=== PATIENT | female | born 1940 ===

== ENCOUNTER → 2017-02-09 | Outpatient (CLI) | payer MEDICARE, OTHER ==
--- NOTE | 2017-02-09 15:29 | RADIOLOGY REPORT (SQ) ---
EXAM DESCRIPTION: VENOUS UNILATERAL LOWER COMPLETED DATE/TIME: 02/09/2017 3:14 pm REASON FOR STUDY: RLE PAIN M79.604 PAIN IN RIGHT LEG COMPARISON: None. TECHNIQUE: Dynamic and static rey scale and color images acquired of the right leg venous system. S elected spectral images acquired with additional compression and augmentation maneuvers. The contrala teral common femoral vein and saphenofemoral junction were also imaged. Images stored on PACS. LIMITATIONS: None. FINDINGS: COMMON FEMORAL: Normal phasicity, compression and augmentation. No visualized echogenic ma terial on rey scale. No defects on color images. FEMORAL: Normal compression and augmentation. No visualized echogenic material on rey scale. No defe cts on color images. POPLITEAL: Normal compression, augmentation. No visualized echogenic material on rey scale. No defec ts on color images. CALF VESSELS: Normal compression, augmentation. No visualized echogenic material on rey scale. No de fects on color images. GSV and SSV: Normal compression, augmentation. No visualized echogenic material on rey scale. No def ects on color images. ANY DEEP VENOUS INSUFFICIENCY: Not evaluated. ANY EVIDENCE OF POPLITEAL CYST: No. OTHER: No other significant finding. CONTRALATERAL COMMON FEMORAL VEIN AND SAPHENOFEMORAL JUNCTION: Normal phasicity, compression and augmentation. No visualized echogenic material on rey scale. No de fects on color images. IMPRESSION: NO EVIDENCE OF DVT OR SVT IN THE RIGHT LEG. TECHNICAL DOCUMENTATION: JOB ID: [id number] [employer]- All Rights Reserved
== END ==
LOC: SP 14:21
PROVIDERS: ATTEND Physician Assistant
DX: M79.604 Pain in right leg (principal); R60.9 Edema, unspecified
CPT/HCPCS: 93971

== ENCOUNTER 2017-08-16 08:32 | Day surgery (SDC) | payer MEDICARE, OTHER ==
[~2017-08-16 08:32] MED LIST: CHONDR SU A NA/HYALUR INTRAOC KIT (SURGICARE) ONE; EPINEPHRINE INJ/PF 1 MG/1 ML AMPULE ONE; KETOROLAC TROMETHAMINE 0.45% 4 DROP/0.4 ML DROPERETTE OD PRN; LIDOCAINE 1% INJ-PF (10 MG/ML) 30 ML SDV ONE
[2017-08-16] MEDS: TETRACAINE HCL 0.5% OPH SOLN 0.6 ML DROPERETTE OD PRN ×3 (09:20→10:02)
[2017-08-16] MEDS: CYCLOPENTOLATE 0.2%/PHENYLEPHRINE 1% OPH SOLN 2 ML OD PRN ×3 (09:20→09:40)
[2017-08-16] MEDS: BESIFLOXACIN HCL 0.6% OPH SUSP 5 ML BOTTLE OD PRN ×4 (09:20→10:11)
[2017-08-16] MEDS: TROPICAMIDE 1% OPH SOLN 3 ML OD PRN ×3 (09:20→09:40)
[2017-08-16] MEDS ORDERED: MIDAZOLAM 2 MG/2 ML INJ ONE (09:35)
[2017-08-16] MEDS: TOBRAMYCIN SULFATE/DEXAMETH OPH OINTMENT 3.5 GM ONE ×2 (10:11)
== END 2017-08-16 10:45 | disposition home or self-care (01) ==
LOC: SC 08:32
PROVIDERS: ATTEND Ophthalmology
DX: H25.11 Age-related nuclear cataract, right eye (principal); I10 Essential (primary) hypertension; M19.90 Unspecified osteoarthritis, unspecified site; E78.00 Pure hypercholesterolemia, unspecified; E03.9 Hypothyroidism, unspecified; M10.9 Gout, unspecified; Z79.899 Other long term (current) drug therapy; Z88.8 Allergy status to other drugs, medicaments and biological substances; Z79.1 Long term (current) use of non-steroidal anti-inflammatories (NSAID)
CPT/HCPCS: 66984; V2630; J2250; J3490 ×3; A9270; J0171; 142

== ENCOUNTER 2017-08-30 07:24 | Day surgery (SDC) | payer MEDICARE, OTHER ==
[~2017-08-30 07:24] MED LIST changes: +BUPIVACAINE HCL 0.75% INJ/PF (7.5 MG/1 ML) 10 ML SDV OS PRN; -KETOROLAC TROMETHAMINE 0.45% 4 DROP/0.4 ML DROPERETTE OD PRN; +KETOROLAC TROMETHAMINE 0.45% 4 DROP/0.4 ML DROPERETTE OS PRN; +LIDOCAINE 4% INJ/PF (40 MG/ML) 5 ML AMPUL OS PRN
[2017-08-30] MEDS: CYCLOPENTOLATE 0.2%/PHENYLEPHRINE 1% OPH SOLN 2 ML OS PRN ×3 (08:05→08:25)
[2017-08-30] MEDS: BESIFLOXACIN HCL 0.6% OPH SUSP 5 ML BOTTLE OS PRN ×4 (08:05→09:00)
[2017-08-30] MEDS: TROPICAMIDE 1% OPH SOLN 3 ML OS PRN ×3 (08:05→08:25)
[2017-08-30] MEDS: TETRACAINE HCL 0.5% OPH SOLN 0.6 ML DROPERETTE OS PRN ×3 (08:05→08:42)
[2017-08-30] MEDS ORDERED: MIDAZOLAM 2 MG/2 ML INJ ONE (08:19)
[2017-08-30] MEDS: TOBRAMYCIN SULFATE/DEXAMETH OPH OINTMENT 3.5 GM ONE ×2 (08:51→09:00)
== END 2017-08-30 09:32 | disposition home or self-care (01) ==
LOC: SC 07:24
PROVIDERS: ATTEND Ophthalmology
DX: H25.12 Age-related nuclear cataract, left eye (principal); Z98.41 Cataract extraction status, right eye; I10 Essential (primary) hypertension; E78.00 Pure hypercholesterolemia, unspecified; E03.9 Hypothyroidism, unspecified; M10.9 Gout, unspecified; Z79.899 Other long term (current) drug therapy; Z79.1 Long term (current) use of non-steroidal anti-inflammatories (NSAID); Z88.8 Allergy status to other drugs, medicaments and biological substances
CPT/HCPCS: 66984; V2630; J2250; J3490 ×3; A9270; J0171; 142

== ENCOUNTER 2019-11-25 20:47 | Inpatient (IN) | payer MEDICARE, OTHER ==
--- NOTE | 2019-11-25 20:52 | ER Document Report ---
ED Medical Screen (RME) - General Chief Complaint: S/S of Possible Stroke Stated Complaint: SLURRED SPEECH Time Seen by Provider: 11/25/19 20:50 Primary Care Provider: JULIET PARKER MD [Primary Care Provider] - Follow up as needed Notes: HPI; 79-year-old female presents emergency room via EMS with sudden onset of slurred speech that started at 6 PM this evening. Per EMS spouse states she was perfectly fine until 6 PM. No previous history of TIA or strokes in the past. PE: Alert and oriented x3. Right facial droop noted. Decreased strength to right arm. Right-sided tongue deviation. Patient was taken straight to CT per stroke protocol. I have greeted and performed a rapid initial assessment of this patient. A comprehensive ED assessment and evaluation of the patient, analysis of test results and completion of the medical decision making process will be conducted by additional ED providers. I have specifically instructed the patient or family members with the patient to immediately return to any nursing staff should anything change in the patient's condition or with their chief complaint. TRAVEL OUTSIDE OF THE [place] IN LAST 30 DAYS: No - Related Data Allergies/Adverse Reactions: allopurinol Allergy (Verified 08/30/17 08:32) RASH Past Medical History - Past Medical History Cardiac Medical History: Reports: Hx Hypertension Denies: Hx Heart Attack Pulmonary Medical History: Denies: Hx Asthma Neurological Medical History: Denies: Hx Cerebrovascular Accident, Hx Seizures GI Medical History: Denies: Hx Hepatitis, Hx Hiatal Hernia, Hx Ulcer Infectious Medical History: Denies: Hx Hepatitis Past Surgical History: Denies: Hx Mastectomy, Hx Open Heart Surgery, Hx Pacemaker Doctor's Discharge - Discharge Referrals: JULIET PARKER MD [Primary Care Provider] - Follow up as needed
[2019-11-25 21:22] LABS: ABSOLUTE BASOPHILS # (AUTO) 0.1 10^3/uL (0.0-0.2); ABSOLUTE EOSINOPHILS # (AUTO) 0.2 10^3/uL (0.0-0.6); ABSOLUTE LYMPHOCYTES (AUTO) 2.7 10^3/uL (0.5-4.7); ABSOLUTE NEUT (AUTO) 7.8 10^3/uL (1.7-8.2); BASOPHILS % (AUTO) 0.9 % (0-2); EOSINOPHILS % (AUTO) 1.7 % (0-6); HEMATOCRIT 48.6 % (36.0-47.0); HEMOGLOBIN 16.5 g/dL (12.0-15.5); LYMPHOCYTES % (AUTO) 22.7 % (13-45); MEAN CORPUSCULAR HEMOGLOBIN 31.6 pg (27.0-33.4); MEAN CORPUSCULAR HGB CONC 33.9 g/dL (32.0-36.0); MEAN CORPUSCULAR VOLUME 93 fl (80-97); MONOCYTES % (AUTO) 8.6 % (3-13); PLATELET COUNT 322 10^3/uL (150-450); RED BLOOD COUNT 5.22 10^6/uL (3.72-5.28); RED CELL DISTRIBUTION WIDTH 12.9 % (11.5-14.0); SEGMENTED NEUTROPHILS % (AUTO) 66.1 % (42-78); TOTAL CELLS COUNTED % (AUTO) 100 %; WHITE BLOOD COUNT 11.8 10^3/uL (4.0-10.5)
[2019-11-25 21:34] LABS: INTERNATIONAL RATION (INR) 0.98; PARTIAL THROMBOPLASTIN TIME 35.1 SEC (23.5-35.8); PROTHROMBIN TIME 13.2 SEC (11.4-15.4)
[2019-11-25 21:39] LABS: APPEARANCE,URINE SLIGHTLY-CLOUDY; BILIRUBIN,URINE NEGATIVE (NEGATIVE); COLOR,URINE YELLOW; GLUCOSE, URINE NEGATIVE (NEGATIVE); KETONES,URINE NEGATIVE (NEGATIVE); LEUKOCYTE ESTERASE,URINE SMALL (NEGATIVE); NITRITE,URINE NEGATIVE (NEGATIVE); PROTEIN,URINE 30 mg/dL (NEGATIVE); URINE SPECIFIC GRAVITY 1.017
[2019-11-25 21:42] LABS: ALBUMIN 4.6 g/dL (3.5-5.0); ALKALINE PHOSPHATASE 120 U/L (38-126); ANION GAP 8 (5-19); ASPARTATE AMINO TRANSFERASE 22 U/L (14-36); BILIRUBIN,DIRECT 0.4 mg/dL (0.0-0.4); BILIRUBIN,TOTAL 1.2 mg/dL (0.2-1.3); BLOOD UREA NITROGEN 20 mg/dL (7-20); CALCIUM 9.8 mg/dL (8.4-10.2); CARBON DIOXIDE 28 mmol/L (22-30); CHLORIDE 103 mmol/L (98-107); CREATINE KINASE 81 U/L (30-135); GLUCOSE 113 mg/dL (75-110); POTASSIUM 3.9 mmol/L (3.6-5.0); TOTAL PROTEIN 7.6 g/dL (6.3-8.2)
--- NOTE | 2019-11-25 21:45 | EKG REPORT ---
SEVERITY:- ABNORMAL ECG - SINUS RHYTHM LEFT AXIS DEVIATION LEFT VENTRICULAR HYPERTROPHY CONSIDER ANTERIOR INFARCT : Confirmed by: Librado Mckoy 25-Nov-2019 21:44:34
[2019-11-25 21:54] LABS: CREATINE KINASE MB 0.77 ng/mL (<4.55)
[2019-11-25 21:56] LABS: TROPONIN I < 0.012 ng/mL
--- NOTE | 2019-11-25 22:17 | RADIOLOGY REPORT (SQ) ---
EXAM DESCRIPTION: CT HEAD WITHOUT IV CONTRAST COMPLETED DATE/TME: 11/25/2019 00:00 CLINICAL HISTORY: 79 years, Female, stroke like symptoms COMPARISON: None. TECHNIQUE: Noncontrast images of the brain were obtained. Images stored on PACS. All CT scanners at this facility use dose modulation, iterative reconstruction, and/or weight based dosing when appropriate to reduce radiation dose to as low as reasonably achievable (ALARA). [facility]: Dose Right [facility]: CareDose [facility]: Dose Right [facility]: Teradose 4D [facility]: [employer] LIMITATIONS: None. FINDINGS: There is no acute intracranial hemorrhage, abnormal mass effect, or major vascular territorial infarction. There is mild, age-appropriate atrophy. There is low-attenuation within the deep white matter, likely on the basis of chronic small vessel ischemic disease. There is no hydrocephalus. The calvarium is intact. The visualized portions of the paranasal sinuses and mastoid air cells are clear. IMPRESSION: Age-appropriate atrophy and presumed chronic small vessel ischemic changes as above. There is no evidence of acute intracranial hemorrhage or major vascular territorial infarct. If clinical concern exists regarding an acute ischemic/vascular etiology being responsible for patient's symptomatology, an MRI of the brain is more sensitive than the current study, in ruling out such a possibility. TECHNICAL DOCUMENTATION: Quality ID # 436: Final reports with documentation of one or more dose reduction techniques (e.g., Automated exposure control, adjustment of the mA and/or kV according to patient size, use of iterative reconstruction technique) copyright 2011 [employer]- All Rights Reserved
--- NOTE | 2019-11-25 22:19 | RADIOLOGY REPORT (SQ) ---
EXAM DESCRIPTION: XR CHEST 1 VIEW COMPLETED DATE/TME: 11/25/2019 20:50 CLINICAL HISTORY: 79 years, Female, weakness COMPARISON: None. NUMBER OF VIEWS: 1 TECHNIQUE: Portable AP upright view the chest was obtained at 9:09 PM LIMITATIONS: Low lung volumes and body habitus FINDINGS: Heart size is within normal limits for technique and low lung volumes. Mild bibasilar hypoventilatory changes are noted. No definite airspace consolidation is seen. There is no evidence of pleural effusion or pneumothorax. IMPRESSION: No acute abnormality as above. copyright 2010 [facility] [employer]- All Rights Reserved
[2019-11-25] MEDS ORDERED: ASPIRIN 325 MG TABLET PO ONE (22:25)
--- NOTE | 2019-11-25 22:29 | ER Document Report ---
ED General - General Chief Complaint: Altered Mental Status Stated Complaint: SLURRED SPEECH Time Seen by Provider: 11/25/19 20:50 Primary Care Provider: JULIET PARKER MD [Primary Care Provider] - Follow up as needed TRAVEL OUTSIDE OF THE [place] IN LAST 30 DAYS: No - HPI Notes: Patient is an 79-year-old female who presents to the emergency department for evaluation. She reports that between 1 and 3 today, while bowling, she was having some difficulty speaking. She felt tired. She went home, went to lay down. Her noted around 6 PM that she was having slurred speech and some right sided weakness, so she presents here to the ER for further evaluation. The patient denies any pain. No recent head injury. She has no history of TIA or stroke in the past. - Related Data Allergies/Adverse Reactions: allopurinol Allergy (Verified 08/30/17 08:32) RASH Home Medications: Synthroid 112 mcg daily, Lasix 20 mg daily, potassium 10 mEq daily, Celebrex 200 mg daily, Uloric 40 mg daily, nifedipine ER 30 mg daily, vitamin D3 25 mcg daily, telmisartan 40 mg daily Past Medical History - General Information source: Patient - Social History Smoking Status: Never Smoker Family History: Malignancy - Breast cancer in daughter - Past Medical History Cardiac Medical History: Reports: Hx Hypertension Denies: Hx Heart Attack Pulmonary Medical History: Denies: Hx Asthma Neurological Medical History: Denies: Hx Cerebrovascular Accident, Hx Seizures Endocrine Medical History: Reports: Hx Hypothyroidism GI Medical History: Denies: Hx Hepatitis, Hx Hiatal Hernia, Hx Ulcer Infectious Medical History: Denies: Hx Hepatitis Past Surgical History: Reports: Hx Cholecystectomy, Hx Hysterectomy. Denies: Hx Mastectomy, Hx Open Heart Surgery, Hx Pacemaker Review of Systems - Review of Systems Constitutional: No symptoms reported EENT: No symptoms reported Cardiovascular: No symptoms reported Respiratory: No symptoms reported Gastrointestinal: No symptoms reported Genitourinary: No symptoms reported Musculoskeletal: No symptoms reported Skin: No symptoms reported Neurological/Psychological: See HPI Physical Exam - Vital signs Vitals: Resp BP Pulse Ox 24 H 164/81 H 95 11/25/19 21:05 11/25/19 21:05 11/25/19 21:05 - Notes Notes: Vital signs reviewed, please refer to chart. Head is normocephalic, atraumatic. Pupils equal round, reactive to light. Neck is supple without meningismus. Heart is regular rate and rhythm. Lungs are clear to auscultation bilaterally. Abdomen is soft, nontender, normoactive bowel sounds throughout. Extremities without cyanosis, clubbing. Posterior calves are nontender. Peripheral pulses are equal. Skin is warm and dry. Patient is awake, alert, oriented x3. Patient shows moderate dysarthria. She has mild drooping of the nasolabial fold and corner of the mouth on the right, but smile is actually symmetrical. Besides these abnormalities, remainder of cranial nerves II through XII are grossly intact without focal neurological deficits. Strength is plus 5 out of 5 bilateral lower extremities and left upper extremity. 4+ out of 5 pediatric care coordinator strength right upper extremity without drift. Sensation is intact. Reflexes symmetrical. Intact [id number], rapid alternating movements, [id number]. Course - Re-evaluation Re-evalutation: 11/25/19 23:13 Patient presents to the emergency department for evaluation. She was initially a stroke alert. Initially it was reported that the patient's symptoms started at 6 PM, but on further clarification with the patient, she actually noticed her symptoms while bowling, sometime between 1 and 3 PM. This in itself would exclu de her from any sort of TPA administration. Beyond that, she has had evolving symptoms. On initial evaluation at the door, the patient had much more significant facial droop and right upper extremity weakness that she does have now. Her dysarthria, however, remained significant. The patient has no history of a TIA or CVA. Her CT scan is unremarkable. Her laboratory investigations are unremarkable. She had aspirin ordered, will contact medicine for admission. 11/25/19 23:[address] Amaya, he will admit the patient for further care. - Vital Signs Vital signs: Temp Pulse Resp BP Pulse Ox 97.7 F 74 15 155/65 H 96 11/25/19 21:16 11/25/19 21:16 11/25/19 22:01 11/25/19 22:01 11/25/19 22:01 - Laboratory Result Diagrams: 11/25/19 21:05 11/25/19 21:05 Laboratory results interpreted by me: 11/25/19 11/25/19 11/25/19 21:05 21:05 21:15 WBC 11.8 H Hgb 16.5 H Hct 48.6 H Creatinine 1.27 H Est GFR ( Amer) 49 L Est GFR (MDRD) Non-Af 40 L Glucose 113 H Urine Protein 30 H Urine Urobilinogen 4.0 H Ur Leukocyte Esterase SMALL H - Diagnostic Test Radiology reviewed: Reports reviewed Radiology results interpreted by me: 11/25/19 23:[address] 11/25/19 00:00 IMPRESSION: Age-appropriate atrophy and presumed chronic small vessel ischemic changes as above. There is no evidence of acute intracranial hemorrhage or major vascular territorial infarct. If clinical concern exists regarding an acute ischemic/vascular etiology being responsible for patient's symptomatology, an MRI of the brain is more sensitive than the current study, in ruling out such a possibility. TECHNICAL DOCUMENTATION: Quality ID # 436: Final reports with documentation of one or more dose reduction techniques (e.g., Automated exposure control, adjustment of the mA and/or kV according to patient size, use of iterative reconstruction technique) copyright 2011 [email or web address]- All Rights Reserved Chest X-Ray 11/25/19 20:50 IMPRESSION: No acute abnormality as above. copyright 2010 [email or web address]- All Rights Reserved - EKG Interpretation by Me Additional EKG results interpreted by me: 11/25/19 23:14 Sinus mechanism with rate of 66 bpm. Left axis deviation. Nonspecific ST changes, but no acute changes concerning for ischemia or infarction. No old studies available for comparison. Discharge - Discharge Clinical Impression: CVA (cerebral vascular accident) Qualifiers: CVA mechanism: unspecified Qualified Code(s): I63.9 - Cerebral infarction, unspecified Condition: Stable Disposition: ADMITTED INPATIENT Admitting Provider: Jose Luis (Hospitalist) Unit Admitted: IMCU Referrals: JULIET PARKER MD [Primary Care Provider] - Follow up as needed
[2019-11-26] MEDS ORDERED: MORPHINE SULFATE 10 MG/ML INJ IV PRN ×4 (03:35→05:19)
[2019-11-26] MEDS ORDERED: MAGNESIUM HYDROXIDE SUSP 30 ML UDCUP PO PRN (03:35)
[2019-11-26] MEDS ORDERED: GUAIFENESIN SYRP 200 MG/10 ML UDC PO PRN (03:35)
[2019-11-26] MEDS ORDERED: METOPROLOL TARTRATE PF/INJ 5 MG/5 ML SDV IV PRN (03:35)
[2019-11-26] MEDS ORDERED: MAG HYDROX/AL HYDROX/SIMETH SUSP 30 ML UDCUP PO PRN (03:35)
[2019-11-26] MEDS ORDERED: LORAZEPAM INJ 2 MG/1 ML VIAL IV PRN (03:35)
[2019-11-26] MEDS ORDERED: MELATONIN 5 MG TABLET PO PRN (03:35)
[2019-11-26] MEDS ORDERED: ACETAMINOPHEN 325 MG TABLET PO PRN (03:35)
[2019-11-26] MEDS ORDERED: HYDRALAZINE HCL INJ/PF 20 MG/1 ML SDV IV PRN (03:35)
--- NOTE | 2019-11-26 05:00 | PDOC H&P ---
History of Present Illness Admission Date/PCP: 11/26/19 00:02 JULIET PARKER MD Patient complains of: Dysarthria History of Present Illness: SOPHIA MARTINEZ is a 79 year old female who presented to the emergency room with a history of acute dysarthria. She admits developing difficulty speaking during the early afternoon of 11/25/2019. Her symptoms persisted and she eventually laid down as she was feeling tired. In the early evening her woke her from sleep and noted that she continued to have slurred speech but also had weakness of her right upper extremity and brought her to the emergency room. She denies other associated or accompanying signs and symptoms. She denies prio r similar episodes. She has not identified any aggravating or ameliorating factors for her acute dysarthria. In the emergency room she was found to have right facial weakness as well as right upper extremity weakness and a prominent dysarthria on initial evaluation. Her symptoms showed improvement throughout her ER course but she continued to have significant dysarthria. CT scan of her head was negative for acute stroke or bleed. Patient was subsequently admitted to the hospital for further evaluation and treatment. Past Medical History Cardiac Medical History: Reports: Hypertension Denies: Atrial Fibrillation, Coronary Artery Disease, DVT, Myocardial Infarction, Hyperlipidema, Pulmonary Embolism Pulmonary Medical History: Denies: Asthma, Chronic Obstructive Pulmonary Disease (COPD) EENT Medical History: Reports: Cataracts Denies: Ears - Hearing aids Neurological Medical History: Denies: Hemorrhagic CVA, Ischemic CVA, Seizures Endocrine Medical History: Reports: Hypothyroidism Denies: Diabetes Mellitus Type 1, Diabetes Mellitus Type 2, Hyperthyroidism Renal/ Medical History: Denies: Chronic Kidney Disease, Nephrolithiasis Malignancy Medical History: Reports: None GI Medical History: Denies: Cirrhosis, Hepatitis, Hiatal Hernia, Peptic Ulcer Disease Musculoskeltal Medical History: Reports: Arthritis Denies: Fibromyalgia, Gout Skin Medical History: Denies: Eczema, Psoriasis Psychiatric Medical History: Denies: Alcohol Dependency, Substance Abuse, Tobacco Dependency Traumatic Medical History: Reports: None Hematology: Denies: Anemia, Bleeding Tendencies Infectious Medical History: Reports: None Past Surgical History Past Surgical History: Reports: Cholecystectomy, Hysterectomy, Other - Bilateral cataract surgery Social History Information Source: Patient Lives with: Spouse/Significant other Smoking Status: Never Smoker Electronic Cigarette use?: No Frequency of Alcohol Use: Social Hx Recreational Drug Use: No Drugs: None Hx Prescription Drug Abuse: No - Advance Directive Resuscitation Status: Full Code Surrogate healthcare decision maker:: bAram Martinez Family History Family History: Malignancy - Daughter with breast cancer. denies: CAD, CVA, DM Parental Family History Reviewed: Yes Children Family History Reviewed: Yes Sibling(s) Family History Reviewed.: Yes Medication/Allergy Home Medications: Celecoxib [Celebrex 200 mg Capsule] 200 mg PO PRN PRN 08/11/17 Febuxostat [Uloric 40 mg Tablet] 40 mg PO DAILY 08/11/17 Furosemide [Lasix 40 mg Tablet] 40 mg PO QAM 08/11/17 Levothyroxine Sodium [Synthroid 0.112 mg Tablet] 112 mcg PO DAILY 08/11/17 Lisinopril 10 mg PO DAILY 08/11/17 Nifedipine [Adalat cc] 30 mg PO DAILY 08/11/17 Allergies/Adverse Reactions: allopurinol Allergy (Verified 08/30/17 08:32) RASH Review of Systems Constitutional: ABSENT: chills, fever(s) Eyes: ABSENT: visual disturbances, other - Eye pain Ears: ABSENT: hearing changes, other - Ear pain Nose, Mouth, and Throat: ABSENT: headache(s), sore throat Cardiovascular: ABSENT: chest pain, palpitations Respiratory: ABSENT: cough, dyspnea Gastrointestinal: ABSENT: abdominal pain, constipation, diarrhea, nausea, vomiting Genitourinary: ABSENT: dysuria, hematuria Musculoskeletal: ABSENT: back pain, joint swelling Integumentary: ABSENT: pruritus, rash Neurological: PRESENT: as per HPI, abnormal speech, focal weakness. ABSENT: confusion, convulsions, memory loss, syncope Psychiatric: ABSENT: anxiety, depression Endocrine: ABSENT: cold intolerance, heat intolerance Hematologic/Lymphatic: ABSENT: easy bleeding, easy bruising Allergic/Immunologic: ABSENT: seasonal rhinorrhea Physical Exam Vital Signs: Temp Pulse Resp BP Pulse Ox 98.4 F 65 16 167/66 H 95 11/26/19 01:07 11/26/19 01:00 11/26/19 01:01 11/26/19 01:01 11/26/19 01:01 Intake & Output 11/24/19 11/25/19 11/26/19 23:59 23:59 23:59 Weight 90.9 kg General appearance: PRESENT: no acute distress, cooperative Head exam: PRESENT: atraumatic, normocephalic Eye exam: PRESENT: conjunctiva pink. ABSENT: conjunctival injection, scleral icterus Ear exam: PRESENT: normal external ear exam. ABSENT: bleeding, drainage Mouth exam: PRESENT: dry mucosa, neck supple Neck exam: ABSENT: thyromegaly, tracheal deviation Respiratory exam: PRESENT: clear to auscultation armando, symmetrical, unlabored Cardiovascular exam: PRESENT: RRR. ABSENT: clicks, gallop, rubs Pulses: PRESENT: normal radial pulses, normal dorsalis pedis pul Vascular exam: PRESENT: normal capillary refill. ABSENT: pallor GI/Abdominal exam: PRESENT: normal bowel sounds, soft. ABSENT: tenderness Rectal exam: PRESENT: deferred Extremities exam: ABSENT: joint swelling, pedal edema Musculoskeletal exam: ABSENT: deformity, dislocation Neurological exam: PRESENT: alert, oriented to person, oriented to place, oriented to time, oriented to situation, CN II-XII grossly intact - Minimal right facial (central seventh) weakness noted. Minimal dysarthria noted., motor sensory deficit - Minimal right upper extremity weakness noted. Psychiatric exam: PRESENT: appropriate affect, normal mood Skin exam: PRESENT: dry, intact, warm. ABSENT: jaundice, rash, urticaria Results Laboratory Results: 11/25/19 21:05 11/25/19 21:05 11/25/19 11/25/19 11/25/19 21:05 21:05 21:15 WBC 11.8 H RBC 5.22 Hgb 16.5 H Hct 48.6 H MCV 93 MCH 31.6 MCHC 33.9 RDW 12.9 Plt Count 322 Seg Neutrophils % 66.1 Sodium 138.7 Potassium 3.9 Chloride 103 Carbon Dioxide 28 Anion Gap 8 BUN 20 Creatinine 1.27 H Est GFR ( Amer) 49 L Glucose 113 H Calcium 9.8 Total Bilirubin 1.2 AST 22 Alkaline Phosphatase 120 Total Protein 7.6 Albumin 4.6 Urine Color YELLOW Urine Appearance SLIGHTLY-CLOUDY Urine pH 6.0 Ur Specific S[place]y 1.017 Urine Protein 30 H Urine Glucose (UA) NEGATIVE Urine Ketones NEGATIVE Urine Blood NEGATIVE Urine Nitrite NEGATIVE Ur Leukocyte Esterase SMALL H Urine WBC (Auto) 7 Urine RBC (Auto) 1 11/25/19 11/25/19 21:05 21:05 Creatine Kinase 81 CK-MB (CK-2) 0.77 Troponin I < 0.012 Impressions: Head CT 11/25/19 00:00 IMPRESSION: Age-appropriate atrophy and presumed chronic small vessel ischemic changes as above. There is no evidence of acute intracranial hemorrhage or major vascular territorial infarct. If clinical concern exists regarding an acute ischemic/vascular etiology being responsible for patient's symptomatology, an MRI of the brain is more sensitive than the current study, in ruling out such a possibility. TECHNICAL DOCUMENTATION: Quality ID # 436: Final reports with documentation of one or more dose reduction techniques (e.g., Automated exposure control, adjustment of the mA and/or kV according to patient size, use of iterative reconstruction technique) copyright 2010 [employer]- All Rights Reserved Chest X-Ray 11/25/19 20:50 IMPRESSION: No acute abnormality as above. copyright 2010 [employer]- All Rights Reserved Assessment and Plan - Diagnosis (1) Acute ischemic cerebrovascular accident (CVA) involving left middle cerebral artery territory Is this a current diagnosis for this admission?: Yes (2) Hypertension Qualifiers: Hypertension type: essential hypertension Qualified Code(s): I10 - Essential (primary) hypertension Is this a current diagnosis for this admission?: Yes (3) Hypothyroidism Qualifiers: Hypothyroidism type: unspecified Qualified Code(s): E03.9 - Hypothyroidism, unspecified Is this a current diagnosis for this admission?: Yes (4) Polyosteoarthritis Qualifiers: Osteoarthritis type: primary Qualified Code(s): M89.49 - Other hypertrophic osteoarthropathy, multiple sites Is this a current diagnosis for this admission?: Yes - Plan Summary Summary: Patient will be admitted to the stroke protocol on the [facility] where she will receive supportive and symptomatic cares per routine. Patient will use Ativan 1 mg IV every 4 hours as needed for anxiety or restlessness. She will use mor phine sulfate 2 to 4 mg IV every 2 hours as needed for pain. She will be evaluated per the stroke protocol. She will be on a cardiac diet. Her home medications will be restarted, as appropriate, as soon as her medication list has been verified and reconciled. - Time Time Spent with patient: 15-24 minutes Medications reviewed and adjusted accordingly: Yes Anticipated Discharge Disposition: Home with Home Health Anticipated Discharge Timeframe: within 72 hours - Inpatient Certification Based on my medical assessment, after consideration of the patient's comorbidities, presenting symptoms, or acuity I expect that the services needed warrant INPATIENT care.: Yes I certify that my determination is in accordance with my understanding of Medicare's requirements for reasonable and necessary INPATIENT services [42 CFR 412.3e].: Yes Medical Necessity: Need Close Monitoring Due to Risk of Patient Decompensation, Need For Continuous Telemetry Monitoring, Need for Neurological Checks
[2019-11-26] MEDS: HEPARIN SOD (PORCINE) 5,000 UNIT/ML 1 ML VIAL SUBCUT SCH ×3 (07:18→22:18)
[2019-11-26 10:06] LABS: ABSOLUTE BASOPHILS # (AUTO) 0.1 10^3/uL (0.0-0.2); ABSOLUTE EOSINOPHILS # (AUTO) 0.1 10^3/uL (0.0-0.6); ABSOLUTE MONOCYTES (AUTO) 0.8 10^3/uL (0.1-1.4); ABSOLUTE NEUT (AUTO) 7.1 10^3/uL (1.7-8.2); BASOPHILS % (AUTO) 0.9 % (0-2); EOSINOPHILS % (AUTO) 1.2 % (0-6); HEMATOCRIT 49.4 % (36.0-47.0); LYMPHOCYTES % (AUTO) 19.6 % (13-45); MEAN CORPUSCULAR HGB CONC 34.4 g/dL (32.0-36.0); MEAN CORPUSCULAR VOLUME 93 fl (80-97); MONOCYTES % (AUTO) 7.6 % (3-13); PLATELET COUNT 304 10^3/uL (150-450); RED BLOOD COUNT 5.31 10^6/uL (3.72-5.28); SEGMENTED NEUTROPHILS % (AUTO) 70.7 % (42-78); TOTAL CELLS COUNTED % (AUTO) 100 %
[2019-11-26] MEDS: FAMOTIDINE 20 MG TABLET PO SCH ×2 (10:24→22:19)
[2019-11-26] MEDS: ASPIRIN 81 MG TABLET, ENT COATED PO SCH (10:24)
[2019-11-26] MEDS: CLOPIDOGREL BISULFATE 75 MG TABLET PO SCH (10:24)
[2019-11-26] MEDS: DOCUSATE SODIUM 100 MG CAPSULE PO SCH ×2 (10:25→17:28)
--- NOTE | 2019-11-26 10:53 | RADIOLOGY REPORT (SQ) ---
EXAM DESCRIPTION: MRI HEAD WITHOUT IMAGES COMPLETED DATE/TIME: 11/26/2019 9:34 am REASON FOR STUDY: Acute dysarthria, right sided weakness COMPARISON: None. TECHNIQUE: Multiplanar imaging includes non-contrasted T1, T2, FLAIR, and diffusion with ADC map seq uences. Images stored on PACS. LIMITATIONS: None. FINDINGS: ANATOMY: No anomalies. Normal vascular flow voids. Pituitary fossa normal. CSF SPACES: Atrophy induced prominence of ventricles and CSF spaces. CEREBRUM: High signal intensity lesions scattered throughout the white matter on FLAIR imaging with d istribution suggesting micro-vascular ischemic changes. No evidence of hemorrhage, mass, or extraaxi al fluid collection. POSTERIOR FOSSA: No signal alteration. No hemorrhage. No edema, masses or mass effect. Internal ramez tory canals, cerebello-pontine angles, mastoids normal. DIFFUSION IMAGING: Less than 1 cm oval focus of abnormal high signal left thalamus bright on diffusio n and dark on ADC map. ORBITS: No masses. Globes normal. PARANASAL SINUSES: No fluid levels. Mucosa normal. OTHER: No other significant finding. IMPRESSION: Acute, nonhemorrhagic lacunar infarct left thalamus. EVIDENCE OF ACUTE STROKE: YES. 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 TECHNICAL DOCUMENTATION: JOB ID: [id number] 2010 [employer]- All Rights Reserved Reading location - IP/workstation name: [email or web address]
[2019-11-26] MEDS ORDERED: ONDANSETRON 4 MG TAB.RAPDIS PO PRN (13:56)
[2019-11-26] MEDS: ATORVASTATIN CALCIUM 40 MG TABLET PO SCH (14:29)
--- NOTE | 2019-11-26 16:13 | RADIOLOGY REPORT (SQ) ---
EXAM DESCRIPTION: CAROTID DOPPLER IMAGES COMPLETED DATE/TIME: 11/26/2019 3:47 pm REASON FOR STUDY: Acute dysarthria, right-sided weakness COMPARISON: None. TECHNIQUE: Grayscale ultrasound, Doppler velocity and spectra, and color Doppler images acquired of the extra-cranial carotid and vertebral arteries. Images stored on PACS. LIMITATIONS: None. FINDINGS: RIGHT CAROTID CCA Velocities: Within normal limits. ICA Velocities Peak systolic 0.40 m/s. End diastolic 0.12 m/s. Proximal ICA/CCA peak systolic ratio 1.7. Spectra normal. No significant plaque. LEFT CAROTID CCA Velocities: Within normal limits. ICA Velocities Peak systolic 0.34 m/s. End diastolic 0.10 m/s. Proximal ICA/CCA peak systolic ratio 1.2. Spectra normal. No significant plaque. VERTEBRAL ARTERIES: Antegrade flow. Normal waveforms. SUBCLAVIAN ARTERIES: Not imaged. OTHER: No other significant finding. IMPRESSION: NO HEMODYNAMICALLY SIGNIFICANT STENOSIS. COMMENT: Quality ID #195: Velocity criteria are extrapolated from the diameter data as defined by t he Society of Radiologists in Ultrasound Consensus Conference. Radiology 2003: 229; 340-346. TECHNICAL DOCUMENTATION: JOB ID: [id number] 2010 [employer]- All Rights Reserved Reading location - IP/workstation name: [email or web address]
--- NOTE | 2019-11-26 22:30 | PDOC PROGRESS REPORT ---
Subjective Progress Note for:: 11/26/19 Subjective:: SOPHIA MARTINEZ is a 79 year old female who presented to the emergency room with a history of acute dysarthria. She admits developing difficulty speaking during the early afternoon of 11/25/2019. Her symptoms persisted and she eventually laid down as she was feeling tired. In the early evening her woke her from sleep and noted that she continued to have slurred speech but also had weakness of her right upper extremity and brought her to the emergency room. She denies other associated or accompanying signs and symptoms. She denies prior similar episodes. She has not identified any aggravating or ameliorating factors for her acute dysarthria. In the emergency room she was found to have right facial weakness as well as right upper extremity weakness and a prominent dysarthria on initial evaluation. Her symptoms showed improvement throughout her ER course but she continued to have significant dysarthria. CT scan of her head was negative for acute stroke or bleed. Patient was subsequently admitted to the hospital for further evaluation and treatment. D2 hospital stay 11/26/19. Was seen and examined at bedside with her in the room. She reports stable right arm weakness mild, no progression from yesterday's weakness. According to her her speech seems to have improved since yesterday, although still not back at her baseline. MRI brain without contrast showed acute nonhemorrhagic lacunar infarct of the left thalamus. Ultrasound of the carotids did not show any significant narrowing. She is able to eat, no trouble swallowing. She denies any chest pain shortness of breath. Reason For Visit: ACUTE CVA LEFT MIDDLE CEREBRAL ARTERY DISTRIBUTION Physical Exam Vital Signs: Temp Pulse Resp BP Pulse Ox 99.3 F 70 18 142/75 H 96 11/26/19 16:27 11/26/19 19:00 11/26/19 16:27 11/26/19 16:27 11/26/19 16:27 Intake & Output 11/25/19 11/26/19 11/27/19 06:59 06:59 06:59 Intake Total 350 Balance 350 Weight 90.9 kg General appearance: PRESENT: no acute distress, cooperative Head exam: PRESENT: atraumatic, normocephalic Eye exam: PRESENT: EOMI, PERRLA Ear exam: PRESENT: normal external ear exam Mouth exam: PRESENT: moist Neck exam: PRESENT: full ROM Respiratory exam: PRESENT: clear to auscultation armando, symmetrical, unlabored. ABSENT: wheezes Cardiovascular exam: PRESENT: RRR, +S1, +S2 Pulses: PRESENT: +2 pedal pulses bilateral GI/Abdominal exam: PRESENT: normal bowel sounds, soft. ABSENT: rebound, tenderness Extremities exam: ABSENT: +2 edema Musculoskeletal exam: PRESENT: full ROM Neurological exam: PRESENT: alert, awake, oriented to person, oriented to place, oriented to time, CN II-XII grossly intact, motor sensory deficit - Very mild right arm paresthesia Psychiatric exam: PRESENT: normal mood Skin exam: PRESENT: normal color Results Laboratory Results: 11/26/19 09:44 11/25/19 21:05 11/26/19 09:44 WBC 10.0 RBC 5.31 H Hgb 17.0 H Hct 49.4 H MCV 93 MCH 32.0 MCHC 34.4 RDW 13.0 Plt Count 304 Seg Neutrophils % 70.7 11/25/19 11/25/19 21:05 21:05 Creatine Kinase 81 CK-MB (CK-2) 0.77 Troponin I < 0.012 Impressions: Head CT 11/25/19 00:00 IMPRESSION: Age-appropriate atrophy and presumed chronic small vessel ischemic changes as above. There is no evidence of acute intracranial hemorrhage or major vascular territorial infarct. If clinical concern exists regarding an acute ischemic/vascular etiology being responsible for patient's symptomatology, an MRI of the brain is more sensitive than the current study, in ruling out such a possibility. TECHNICAL DOCUMENTATION: Quality ID # 436: Final reports with documentation of one or more dose reduction techniques (e.g., Automated exposure control, adjustment of the mA and/or kV according to patient size, use of iterative reconstruction technique) copyright 2010 [employer]- All Rights Reserved Chest X-Ray 11/25/19 20:50 IMPRESSION: No acute abnormality as above. copyright 2010 [employer]- All Rights Reserved Head MRI 11/26/19 03:30 IMPRESSION: Acute, nonhemorrhagic lacunar infarct left thalamus. EVIDENCE OF ACUTE STROKE: YES. 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 Carotid Doppler Study 11/26/19 03:32 IMPRESSION: NO HEMODYNAMICALLY SIGNIFICANT STENOSIS. Assessment and Plan - Diagnosis (1) CVA (cerebral vascular accident) Qualifiers: CVA mechanism: thrombosis Laterality of affected vessel: left Is this a current diagnosis for this admission?: Yes Plan: -Came in with slurring of speech right arm paresthesia few hrs prior to admission -Noted to have right facial weakness right upper extremity weakness and slurring of speech in the ED - minimal deficit on PE -She will CT head negative for acute stroke or bleed -Did not receive TPA as she was out of the therapeutic window -MRI showed acute nonhemorrhagic lacunar infarct left thalamus -Ultrasound carotids no significant stenosis -Awaiting echo result -Started on aspirin 81 mg and statin -PT OT to see her -Swallow eval (2) Hypertension Qualifiers: Hypertension type: essential hypertension Qualified Code(s): I10 - Essential (primary) hypertension Is this a current diagnosis for this admission?: Yes Plan: - BP 170s sytolic -On nifedipine and telmisartan at home -Permissive hypertension until tomorrow. No IV medications unless blood pressure systolic more than 220 -We will resume her nifedipine and telmisartan tomorrow (3) Hypothyroidism Qualifiers: Hypothyroidism type: unspecified Qualified Code(s): E03.9 - Hypothyroidism, unspecified Is this a current diagnosis for this admission?: Yes Plan: -Home levothyroxine - Time Time Spent with patient: 25-34 minutes Anticipated Discharge Disposition: Home, Self Care Anticipated Discharge Timeframe: within 24 hours
--- NOTE | 2019-11-27 01:00 | XCELERA REPORT ---
[address] [address] Transthoracic Echocardiogram Report Name: SOPHIA MARTINEZ Age: 79 yrs Gender: Female : 1940 Patient Status: Inpatient [facility] Study Date: 11/26/2019 10:38 AM Height: 69 in Weight: 200 lb BSA: 2.1 m2 Procedure: A complete two-dimensional transthoracic echocardiogram was performed (2D, M-mode, spectral and color flow Doppler). The study was technically adequate with some images being suboptimal in quality. Reason For Study: stroke Ordering Physician: MANISH GAVIRIA Performed By: Adriana Jalloh Interpretation Summary LEFT VENTRICLE: LV Systolic function: LVEF is felt to be within normal limits. Best estimate is approximately LVEF is 60 to 65%. LV Diastolic Function: Grade II diastolic dysfunction noted. Wall motion: No definite regional wall motion abnormalities are noted. Left ventricular chamber size: is within normal limit. Left ventricular wall thickness: is increased indicative of Mild LVH. RIGHT VENTRICLE: RV systolic function: is felt to be within normal limit. Right Ventricle Size: is within normal limits. LEFT ATRIUM size: is mildly dilated. RIGHT ATRIUM size: is within normal limit. INTER ATRIAL SEPTUM: No definite atrial septal defect noted however a small PFO could be missed. AORTIC ROOT: seems to be within normal limits. ASCENDING AORTA: is not well visualized. INFERIOR VENA CAVA: was not well visualized. VALVES: MITRAL VALVE: Leaflets are mildly thickened. Mobility seems to be within normal limits. Mitral Regurgitation: Trace mitral regurgitation is noted. Mitral Stenosis: No mitral stenosis noted. Mitral valve prolapse: none noted. AORTIC VALVE: seems to be trileaflet with mild thickening but adequate excursion. Aortic stenosis: No aortic stenosis noted. Aortic regurgitation: mild to moderate aortic incompetence noted. TRICUSPID VALVE: mobility and structures within normal limit. Tricuspid stenosis: no tricuspid stenosis noted. Tricuspid regurgitation: Trace tricuspid regurgitation noted. Estimated RVSP: cannot be accurately commented upon but possibly at upper limit of normal. PULMONARY VALVE: was not well visualized but no significant abnormalities suspected. Pulmonary stenosis: no pulmonary stenosis noted. Pulmonary regurgitation: no significant pulmonary regurgitation noted. MASSES AND THROMBUS: No definite intracardiac thrombus or masses are noted. PERICARDIUM: No pericardial effusion was noted. IMPRESSION: 1. Normal LVEF. 2. Mild LVH noted. 3. Grade II [mild] Diastolic Dysfunction noted. 4. Mild to moderate aortic regurgitation noted. 5. LA is mildly dilated. 6. Low probability of cardiac source, if clinical suspicion is high consider transoesophageal echocardiogram. 7. Recommend outpatient cardiac monitoring to rule out atrial fibrillation as cause of CVA MMode/2D Measurements & Calculations RVDd: 3.9 cm LVIDd: 5.9 cm FS: 38.4 % Ao root diam: 3.2 cm IVSd: 1.0 cm LVIDs: 3.6 cm EDV(Teich): 170.0 ml Ao root area: 8.2 cm2 LVPWd: 1.0 cm ESV(Teich): 54.6 ml LA dimension: 4.0 cm EF(Teich): 67.9 % Doppler Measurements & Calculations MV E max primo: MV P1/2t max primo: Ao V2 max: AI max primo: 53.8 cm/sec 55.2 cm/sec 150.0 cm/sec 450.6 cm/sec MV A max primo: MV P1/2t: 110.3 msec Ao max PG: AI max P.9 cm/sec MVA(P1/2t): 2.0 cm2 9.0 mmHg 81.2 mmHg MV E/A: 0.59 MV dec slope: AI dec slope: 150.7 cm/sec2 146.5 cm/sec2 AI P1/2t: MV dec time: 875.9 msec 0.38 sec LV V1 max PG: PA V2 max: TR max primo: AV P1/2t-pr_phl: 5.4 mmHg 117.0 cm/sec 221.3 cm/sec 875.9 msec LV V1 max: PA max P.5 mmHg TR max P.0 cm/sec 19.6 mmHg MV P1/2t-pr_phl: 110.3 msec : MANISH GAVIRIA Shyamal
[2019-11-27 04:28] LABS: HEMATOCRIT 46.4 % (36.0-47.0); MEAN CORPUSCULAR HGB CONC 34.5 g/dL (32.0-36.0); MEAN CORPUSCULAR VOLUME 93 fl (80-97); PLATELET COUNT 252 10^3/uL (150-450); RED BLOOD COUNT 4.99 10^6/uL (3.72-5.28); RED CELL DISTRIBUTION WIDTH 12.9 % (11.5-14.0); WHITE BLOOD COUNT 9.8 10^3/uL (4.0-10.5)
[2019-11-27 04:41] LABS: ALBUMIN 3.7 g/dL (3.5-5.0); ALKALINE PHOSPHATASE 96 U/L (38-126); ANION GAP 9 (5-19); ASPARTATE AMINO TRANSFERASE 20 U/L (14-36); BILIRUBIN,DIRECT 0.3 mg/dL (0.0-0.4); BILIRUBIN,TOTAL 1.4 mg/dL (0.2-1.3); BLOOD UREA NITROGEN 19 mg/dL (7-20); CALCIUM 9.5 mg/dL (8.4-10.2); CARBON DIOXIDE 23 mmol/L (22-30); CHLORIDE 107 mmol/L (98-107); GLUCOSE 100 mg/dL (75-110); POTASSIUM 4.2 mmol/L (3.6-5.0); TOTAL PROTEIN 6.4 g/dL (6.3-8.2); TRIGLYCERIDES 134 mg/dL (<150)
[2019-11-27 04:57] LABS: DIRECT LDL 143 mg/dL (<100)
[2019-11-27] MEDS: HEPARIN SOD (PORCINE) 5,000 UNIT/ML 1 ML VIAL SUBCUT SCH (06:07)
[2019-11-27 06:12] LABS: ABSOLUTE LYMPHOCYTES# (MANUAL) 2.5 10^3/uL (0.5-4.7); ABSOLUTE MONOCYTES # (MANUAL) 0.3 10^3/uL (0.1-1.4); BAND NEUTROPHILS % (MANUAL) 1 % (3-5); BASOPHILS % (MANUAL) 0 % (0-2); EOSINOPHILS % (MANUAL) 1 % (0-6); LYMPHOCYTES % (MANUAL) 26 % (13-45); MONOCYTES % (MANUAL) 3 % (3-13); SEGMENTED NEUTROPHILS % (MAN) 69 % (42-78); TOTAL CELLS COUNTED 100; TOXIC GRANULATION SLIGHT
[2019-11-27 06:13] LABS: OVALOCYTES SLIGHT; PLATELET COMMENT ADEQUATE; POIKILOCYTOSIS SLIGHT; SCHISTOCYTES SLIGHT
--- NOTE | 2019-11-27 07:17 | PDOC DISCHARGE SUMMARY ---
Impression - Admit/DC Date/PCP Admission Date/Primary Care Provider: 11/26/19 00:02 JULIET PARKER MD Discharge Date: 11/27/19 - Discharge Diagnosis (1) CVA (cerebral vascular accident) Is this a current diagnosis for this admission?: Yes (2) Hypertension Is this a current diagnosis for this admission?: Yes (3) Hypothyroidism Is this a current diagnosis for this admission?: Yes - Additional Information Resuscitation Status: Full Code Discharge Diet: As Tolerated Discharge Activity: Activity As Tolerated Referrals: JULIET PARKER MD [Primary Care Provider] - 12/06/19 2:00 pm Prescriptions: Aspirin [Ecotrin 81 mg EC Tablet] 81 mg PO DAILY 60 Days #60 tabec Atorvastatin Calcium [Lipitor 40 mg Tablet] 40 mg PO DAILY 60 Days #60 tablet Home Medications: Celecoxib [Celebrex 200 mg Capsule] 200 mg PO DAILY 08/11/17 Febuxostat [Uloric 40 mg Tablet] 40 mg PO DAILY 08/11/17 Furosemide [Lasix 40 mg Tablet] 20 mg PO QAM 08/11/17 Levothyroxine Sodium [Synthroid 0.112 mg Tablet] 112 mcg PO DAILY 08/11/17 Cholecalciferol (Vitamin D3) [Vitamin D3] 25 mcg PO DAILY 11/26/19 Nifedipine [Nifedipine ER] 30 mg PO DAILY 11/26/19 Potassium Chloride [Klor-Con 10 Meq Tablet ER] 10 meq PO DAILY 11/26/19 Telmisartan 40 mg PO DAILY 11/26/19 Aspirin [Ecotrin 81 mg EC Tablet] 81 mg PO DAILY 60 Days #60 tabec 11/27/19 Atorvastatin Calcium [Lipitor 40 mg Tablet] 40 mg PO DAILY 60 Days #60 tablet 11/27/19 History of Present Illiness History of Present Illness: SOPHIA MARTINEZ is a 79 year old female, who presented to the emergency room with a history of acute dysarthria. She admits developing difficulty speaking during the early afternoon of 11/25/2019. Her symptoms persisted and she eventually laid down as she was feeling tired. In the early evening her woke her from sleep and noted that she continued to have slurred speech but also had weakness of her right upper extremity and brought her to the emergency room. She denies other associated or accompanying signs and symptoms. She denies prior similar episodes. She has not identified any aggravating or ameliorating factors for her acute dysarthria. In the emergency room she was found to have right facial weakness as well as right upper extremity weakness and a prominent dysarthria on initial evaluation. Her symptoms showed improvement throughout her ER course but she continued to have significant dysarthria. CT scan of her head was negative for acute stroke or bleed. Patient was subsequently admitted to the hospital for further evaluation and treatment. Hospital Course Hospital Course: D2 hospital stay 11/26/19. Was seen and examined at bedside with her in the room. She reports stable right arm weakness mild, no progression from yesterday's weakness. According to her her speech seems to have improved since yesterday, although still not back at her baseline. MRI brain without contrast showed acute nonhemorrhagic lacunar infarct of the left thalamus. Ultrasound of the carotids did not show any significant narrowing. She is able to eat, no trouble swallowing. She denies any chest pain shortness of breath. D3 hospital stay 11/27/19. She was seen and examined at bedside. No new neuologic deficit. Speech still somewhat slurred but no progression. denies any chest pain, SOB. Physical Exam Vital Signs: Temp Pulse Resp BP Pulse Ox 97.5 F 61 18 198/68 H 98 11/27/19 04:28 11/27/19 04:28 11/27/19 04:28 11/27/19 04:28 11/27/19 04:28 Intake & Output 11/25/19 11/26/19 11/27/19 06:59 06:59 06:59 Intake Total 500 Output Total 1 Balance 499 Weight 90.9 kg 86.1 kg General appearance: PRESENT: no acute distress, cooperative Eye exam: PRESENT: EOMI, PERRLA Mouth exam: PRESENT: moist Neck exam: PRESENT: full ROM Respiratory exam: PRESENT: clear to auscultation armando, symmetrical, unlabored. ABSENT: rales Cardiovascular exam: PRESENT: RRR, +S1, +S2 Vascular exam: PRESENT: normal capillary refill GI/Abdominal exam: PRESENT: normal bowel sounds, soft. ABSENT: rebound, tenderness Extremities exam: ABSENT: +2 edema Musculoskeletal exam: PRESENT: full ROM Neurological exam: PRESENT: awake, oriented to person, oriented to place, oriented to time, CN II-XII grossly intact, motor sensory deficit - mild right sided weakness Psychiatric exam: PRESENT: normal mood Results Laboratory Results: WBC 9.8 10^3/uL (4.0-10.5) 11/27/19 03:48 RBC 4.99 10^6/uL (3.72-5.28) 11/27/19 03:48 Hgb 16.0 g/dL (12.0-15.5) H 11/27/19 03:48 Hct 46.4 % (36.0-47.0) 11/27/19 03:48 MCV 93 fl (80-97) 11/27/19 03:48 MCH 32.0 pg (27.0-33.4) 11/27/19 03:48 MCHC 34.5 g/dL (32.0-36.0) 11/27/19 03:48 RDW 12.9 % (11.5-14.0) 11/27/19 03:48 Plt Count 252 10^3/uL (150-450) 11/27/19 03:48 Lymph % (Auto) Not Reportable 11/27/19 03:48 [place] % (Auto) Not Reportable 11/27/19 03:48 Eos % (Auto) Not Reportable 11/27/19 03:48 Baso % (Auto) Not Reportable 11/27/19 03:48 Absolute Neuts (auto) Not Reportable 11/27/19 03:48 Absolute Lymphs (auto) Not Reportable 11/27/19 03:48 Absolute Monos (auto) Not Reportable 11/27/19 03:48 Absolute Eos (auto) Not Reportable 11/27/19 03:48 Absolute Basos (auto) Not Reportable 11/27/19 03:48 Total Counted 100 11/27/19 03:48 Seg Neutrophils % Not Reportable 11/27/19 03:48 Seg Neuts % (Manual) 69 % (42-78) 11/27/19 03:48 Band Neutrophils % 1 % (3-5) L 11/27/19 03:48 Lymphocytes % (Manual) 26 % (13-45) 11/27/19 03:48 Monocytes % (Manual) 3 % (3-13) 11/27/19 03:48 Eosinophils % (Manual) 1 % (0-6) 11/27/19 03:48 Basophils % (Manual) 0 % (0-2) 11/27/19 03:48 Abs Neuts (Manual) 6.9 10^3/uL (1.7-8.2) 11/27/19 03:48 Abs Lymphs (Manual) 2.5 10^3/uL (0.5-4.7) 11/27/19 03:48 Abs Monocytes (Manual) 0.3 10^3/uL (0.1-1.4) 11/27/19 03:48 Absolute Eos (Manual) 0.1 10^3/uL (0.0-0.6) 11/27/19 03:48 Abs Basophils (Manual) 0.0 10^3/uL (0.0-0.2) 11/27/19 03:48 Toxic Granulation SLIGHT 11/27/19 03:48 Platelet Comment ADEQUATE 11/27/19 03:48 Poikilocytosis SLIGHT 11/27/19 03:48 Ovalocytes SLIGHT 11/27/19 03:48 Schistocytes SLIGHT 11/27/19 03:48 PT 13.2 SEC (11.4-15.4) 11/25/19 21:05 INR 0.98 11/25/19 21:05 APTT 35.1 SEC (23.5-35.8) 11/25/19 21:05 Sodium 139.2 mmol/L (137-145) 11/27/19 03:48 Potassium 4.2 mmol/L (3.6-5.0) 11/27/19 03:48 Chloride 107 mmol/L (98-107) 11/27/19 03:48 Carbon Dioxide 23 mmol/L (22-30) 11/27/19 03:48 Anion Gap 9 (5-19) 11/27/19 03:48 BUN 19 mg/dL (7-20) 11/27/19 03:48 Creatinine 1.24 mg/dL (0.52-1.25) 11/27/19 03:48 Est GFR ( Amer) 50 (>60) L 11/27/19 03:48 Est GFR (MDRD) Non-Af 42 (>60) L 11/27/19 03:48 Glucose 100 mg/dL (75-110) 11/27/19 03:48 Hemoglobin A1c % 5.4 % (4.7-6.0) 11/26/19 09:44 Calcium 9.5 mg/dL (8.4-10.2) 11/27/19 03:48 Total Bilirubin 1.4 mg/dL (0.2-1.3) H 11/27/19 03:48 Direct Bilirubin 0.3 mg/dL (0.0-0.4) 11/27/19 03:48 Neonat Total Bilirubin Not Reportable 11/27/19 03:48 Neonat Direct Bilirubin Not Reportable 11/27/19 03:48 Neonat Indirect Bili Not Reportable 11/27/19 03:48 AST 20 U/L (14-36) 11/27/19 03:48 ALT 11 U/L (<35) 11/27/19 03:48 Alkaline Phosphatase 96 U/L (38-126) 11/27/19 03:48 Creatine Kinase 81 U/L (30-135) 11/25/19 21:05 CK-MB (CK-2) 0.77 ng/mL (<4.55) 11/25/19 21:05 Troponin I < 0.012 ng/mL 11/25/19 21:05 Total Protein 6.4 g/dL (6.3-8.2) 11/27/19 03:48 Albumin 3.7 g/dL (3.5-5.0) 11/27/19 03:48 Triglycerides 134 mg/dL (<150) 11/27/19 03:48 Cholesterol 225.50 mg/dL (0-200) H 11/27/19 03:48 LDL Cholesterol Direct 143 mg/dL (<100) H 11/27/19 03:48 VLDL Cholesterol 27.0 mg/dL (10-31) 11/27/19 03:48 HDL Cholesterol 60 mg/dL (>40) 11/27/19 03:48 Urine Color YELLOW 11/25/19 21:15 Urine Appearance SLIGHTLY-CLOUDY 11/25/19 21:15 Urine pH 6.0 (5.0-9.0) 11/25/19 21:15 Ur Specific [place] 1.017 11/25/19 21:15 Urine Protein 30 mg/dL (NEGATIVE) H 11/25/19 21:15 Urine Glucose (UA) NEGATIVE mg/dL (NEGATIVE) 11/25/19 21:15 Urine Ketones NEGATIVE mg/dL (NEGATIVE) 11/25/19 21:15 Urine Blood NEGATIVE (NEGATIVE) 11/25/19 21:15 Urine Nitrite NEGATIVE (NEGATIVE) 11/25/19 21:15 Urine Bilirubin NEGATIVE (NEGATIVE) 11/25/19 21:15 Urine Urobilinogen 4.0 mg/dL (<2.0) H 11/25/19 21:15 Ur Leukocyte Esterase SMALL (NEGATIVE) H 11/25/19 21:15 Urine WBC (Auto) 7 /HPF 11/25/19 21:15 Urine RBC (Auto) 1 /HPF 11/25/19 21:15 U Hyaline Cast (Auto) 1 /LPF 11/25/19 21:15 Urine Bacteria (Auto) TRACE /HPF 11/25/19 21:15 Squamous Epi Cells Auto 10 /HPF 11/25/19 21:15 Urine Mucus (Auto) RARE /LPF 11/25/19 21:15 Urine Ascorbic Acid NEGATIVE (NEGATIVE) 11/25/19 21:15 11/25/19 21:05 CK-MB (CK-2) 0.77 Troponin I < 0.012 Impressions: Head CT 11/25/19 00:00 IMPRESSION: Age-appropriate atrophy and presumed chronic small vessel ischemic changes as above. There is no evidence of acute intracranial hemorrhage or major vascular territorial infarct. If clinical concern exists regarding an acute ischemic/vascular etiology being responsible for patient's symptomatology, an MRI of the brain is more sensitive than the current study, in ruling out such a possibility. TECHNICAL DOCUMENTATION: Quality ID # 436: Final reports with documentation of one or more dose reduction techniques (e.g., Automated exposure control, adjustment of the mA and/or kV according to patient size, use of iterative reconstruction technique) copyright 2010 [employer]- All Rights Reserved Chest X-Ray 11/25/19 20:50 IMPRESSION: No acute abnormality as above. copyright 2010 [employer]- All Rights Reserved Head MRI 11/26/19 03:30 IMPRESSION: Acute, nonhemorrhagic lacunar infarct left thalamus. EVIDENCE OF ACUTE STROKE: YES. 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 Carotid Doppler Study 11/26/19 03:32 IMPRESSION: NO HEMODYNAMICALLY SIGNIFICANT STENOSIS. Plan Plan of Treatment: - continue aspirin and lipitor on discharge - follow up with PCP Time Spent: Greater than 30 Minutes Stroke Is this a Stroke Patient?: Yes Stroke Pt being discharged on Anti-thrombolytic therapy?: Yes Stroke Pt being discharged on Anti-coagulation therapy?: No Reason(s) for not prescribing Anti-coagulation therapy:: Not indicated Stroke Pt being discharged on Statins?: Yes Acute Heart Failure Is this a Heart Failure Patient?: No
[2019-11-27] MEDS: CLOPIDOGREL BISULFATE 75 MG TABLET PO SCH (09:46)
[2019-11-27] MEDS: FAMOTIDINE 20 MG TABLET PO SCH (09:46)
[2019-11-27] MEDS: ASPIRIN 81 MG TABLET, ENT COATED PO SCH (09:46)
[2019-11-27] MEDS: DOCUSATE SODIUM 100 MG CAPSULE PO SCH (09:46)
[2019-11-27] MEDS: ATORVASTATIN CALCIUM 40 MG TABLET PO SCH (09:46)
[2019-11-27] MEDS ORDERED: NIFEDIPINE 30 MG TAB.ER.24 PO SCH (10:00)
[2019-11-27] MEDS ORDERED: LOSARTAN POTASSIUM 50 MG TABLET PO SCH (10:00)
[2019-11-27] MEDS ORDERED: LEVOTHYROXINE SODIUM 0.112 MG TABLET PO SCH (10:00)
[2019-11-27 13:38] VITALS: BP 140/63
== END 2019-11-27 14:05 | disposition home or self-care (01) | DRG 66 ==
LOC: ER 20:47 → EH 11-26 00:02 → 5 11-26 04:52
PROVIDERS: ADMIT Emergency Medicine; ATTEND Internal Medicine
DX: I63.81 Other cerebral infarction due to occlusion or stenosis of small artery (principal); E03.9 Hypothyroidism, unspecified; I10 Essential (primary) hypertension; H26.9 Unspecified cataract; M89.49 Other hypertrophic osteoarthropathy, multiple sites; R47.1 Dysarthria and anarthria; R29.810 Facial weakness; R53.1 Weakness; Z79.899 Other long term (current) drug therapy; Z79.82 Long term (current) use of aspirin; Z88.8 Allergy status to other drugs, medicaments and biological substances
CPT/HCPCS: 36415; 70450; 70551; 71045; 80053; 80061; 81001; 82550; 82553; 83036; 84484; 85025; 85610; 85730; 93005; 93010; 93306; 93880; 99285; J0360; J1644; J2060; J3490